=== PATIENT | female | born 1955 | race Caucasian/White ===

== ENCOUNTER 2023-06-14 13:21 | Emergency (ER) | payer MEDICARE, OTHER, SELFPAY ==
[2023-06-14 13:24] VITALS: BP 136/78
[2023-06-14 13:40] LABS: % Basophils 0.7 % (0-2); % Eosinophils 1.3 % (0-6); % Immature Granulocytes 0.3 % (0-0.5); % Lymphocytes 21.6 % (20.5-51.1); % Monocytes 8.3 % (1.7-9.3); % Neutrophils 67.8 % (42.2-75.2); Absolute Basophils 0.1 10^3/uL (0-0.2); Absolute Eosinophils 0.1 10^3/uL (0-0.7); Absolute Monocytes 0.8 10^3/uL (0.1-0.6); Absolute Neutrophils 6.2 10^3/uL (1.4-6.5); Hematocrit 42.7 % (37.0-47.0); Hemoglobin 14.4 g/dL (12.0-16.0); Mean Corp Hgb Conc. 33.7 g/dL (33.0-37.0); Mean Platelet Volume 10.4 fL (7.4-10.4); Nucleated Red Blood Cells % 0 %; Platelet Count 320 10^3/uL (130-400); Red Cell Dist. Width 12.8 % (11.5-14.5); White Blood Cell Count 9.2 10^3/uL (4.8-10.8)
[2023-06-14 13:51] LABS: ALT (SGPT) 16 U/L (0-35); AST (SGOT) 21 U/L (14-36); Albumin 4.1 g/dl (3.5-5.0); Alkaline Phosphatase 64 U/L (38-126); Blood Urea Nitrogen 17 mg/dl (7-17); Calcium 9.9 mg/dl (8.4-10.2); Carbon Dioxide 31 mmol/L (22-30); Chloride 99 mmol/L (98-107); Glucose 115 mg/dl (70-99); Sodium 140 mmol/L (135-145); Total Bilirubin 0.5 mg/dl (0.2-1.3); Total Protein 6.9 g/dl (6.3-8.2); eGFR > 60.00
[2023-06-14 15:08] VITALS: BP 150/80
--- NOTE | 2023-06-14 15:12 | ED.GENMED ---
History of Present Illness
General
Chief Complaint: Blood Pressure Problem
Source: patient
Exam Limitations: none
Time Seen by Provider: 06/14/23 14:52
Nursing documentation reviewed up to this point in time: agreed with
Travel History
Have you had any contact with someone who has COVID-19?: No
Do you have any symptoms of coronavirus? Fever > 100 degrees, chills, cough, shortness of breath, sore throat, loss of taste or smell, muscle aches, or headache?: No
History of Present Illness
History of Present Illness:
67-year-old female with history of HTN, HLD presents for high blood pressure. She recently injured her right ankle and is having Occupational Therapy at home. She states she took her blood pressure yesterday and it was 179/100. Today she states
she sat up in bed this morning and took her blood pressure was 150/99. She took her meds which included losartan 25 mg. She ate breakfast did some ADLs and her blood pressure was still in the 150s/90ss. She called her PCP Dr. Humphreys who told her
to increase her losartan from 25 to 50 mg and she did that at 10 AM. She felt little nauseous had some yogurt and coffee and laid down
Her occupational therapist came at noon and took her blood pressure and it was starting to improve ' but still high.'
She is asymptomatic now
She has had no chest pain, no SOB, no headaches, weakness or dizziness
Past History
Past History
ED Past Medical History: HTN, Hypercholesterolemia, Other (Depression, back pain, neck pain, high blood pressure, pancreatic divisum with pancreatic cyst) and Other (Scoliosis)
ED Past Surgical History: Appendectomy, Cholecystectomy (.) and Gynecological
Social History
Tobacco: Non-smoker
Alcohol: None
Drug: None
Personal: Single
Living: alone
Employment: Employed (Self-employed [employer])
Family History
Family History: Other (Noncontributory)
Review of Systems
Review of Systems
Allergies reviewed?: Yes
All Other Systems: ROS reviewed and negative except as documented in HPI and ROS
Constitutional: Denies fatigue
Respiratory: Denies trouble breathing
Cardiac: Denies chest pain
ABD/GI: Reports nausea (Female little nauseous around 10 AM, ate yogurt and drink coffee, laid down and felt better); Denies abdominal pain, vomiting, diarrhea, constipated or anorexia
: Denies dysuria or difficulty voiding
Musculoskeletal: Denies edema
Skin: Reports no symptoms
Neurological: Reports dizzy ([place] a little dizzy earlier today, none since); Denies headache or weakness
Phy Exam
Physical Exam
Physical Exam:
GENERAL: No acute distress. A&Ox3.
CONSTITUTIONAL: Afebrile.
EYES: PERRL, conjunctivae normal
ENMT: moist mucus membranes, Pharynx nl
RESPIRATORY: Regular respirations, nonlabored, lungs clear.
CARDIOVASCULAR: Regular rate and rhythm, no murmurs, no rubs.
GI: Soft, nontender, normal BS
MUSCULOSKELETAL: Moves with ease. Well perfused. No edema
SKIN: Warm, dry, pink
PSYCH: Normal mood and affect. Well kept, interactive and appropriate
NEUROLOGIC: Awake, alert and oriented. No focal neurological deficits
Course
Orders/Labs/Results
Orders:
Orders
06/14/23 13:29
Electrocardiogram (*1) Urgent
Reason for Study: Hypertension, Benign
EKG- Treatment ONCE
06/14/23 13:30
Complete Blood Count/With Diff Urgent
Comprehensive Metabolic Panel Urgent
Abnormal Lab Results
06/14/23
13:30
Absolute Monos (auto) 0.8 H 10^3/uL
(0.1-0.6)
Carbon Dioxide 31 H mmol/L
(22-30)
Glucose 115 H mg/dl
(70-99)
06/14/23 13:30
06/14/23 13:30
Vital Signs
Initial and Last Documented VS:
Initial Vital Signs
Temp Pulse Resp BP Pulse Ox
98.0 F 65 16 136/78 98
06/14/23 13:24 06/14/23 13:24 06/14/23 13:24 06/14/23 13:24 06/14/23 13:24
Last Documented Vital Signs
Temp Pulse Resp BP Pulse Ox
98.0 F 60 16 130/88 98
06/14/23 13:24 06/14/23 15:52 06/14/23 15:52 06/14/23 15:52 06/14/23 13:24
MDM/Problems Addressed
Differential Diagnosis Includes:
hypertension, hypertensive urgency
MDM/Problems Addressed:
67-year-old female with history of HTN, HLD presents for high blood pressure. She recently injured her right ankle and is having Occupational Therapy at home. She states she took her blood pressure yesterday and it was 179/100. Today she states
she sat up in bed this morning and took her blood pressure was 150/99. She took her meds which included losartan 25 mg. She ate breakfast did some ADLs and her blood pressure was still in the 150s over the 90s. She called her PCP Dr. Humphreys who
told her to increase her losartan from 25 to 50 mg and she did that at 10 AM. She felt little nauseous had some yogurt and coffee and laid down
Her occupational therapist came at noon and took her blood pressure and it was starting to improve ' but still high.' She has had no chest pain, no SOB, no headaches, weakness or dizziness
She is asymptomatic now
EKG NSR
Blood pressure 136/78
06/14/2023 1515 PM
CBC normal
CMP normal
Blood pressure 150/80
Blood pressure seems to be improving with the increased dose of losartan. She is stable for discharge.
Chronic conditions affecting care: HTN
*Critical Care Note
Total Time (30-74mins, 75-104mins- exclusive of procedures): Not Applicable
ED Attending Note
-
Portions of this chart may have been created with voice recognition software.� Occasional wrong word or��sound alike� substitutions may have occurred due to the inherent limitations of voice recognition software.
Discharge Plan
Departure
Patient Disposition: Home (Routine Discharge)
Date of Disposition: 06/14/23
Time of Disposition: 15:17
Patient with high blood pressure during this ER visit?: Yes
Condition: Good
Discharge Problem:
HTN (hypertension)
Instructions: High Blood Pressure (DC)
Prescriptions:
No Action
rosuvastatin 10 MG tablet
10 mg PO HS
metoprolol succinate 25 MG tablet extended release 24 hr
25 mg PO DAILY
duloxetine 60 MG capsule,delayed release(DR/EC)
60 mg PO DAILY
ascorbic acid (vitamin C) [Vitamin C] 1,000 mg Tablet
1 g PO DAILY
trazodone 50 mg Tablet
50 mg PO HSPRN PRN (Reason: anxiety)
cyanocobalamin (vitamin B-12) 1,000 mcg Tablet
1,000 mcg PO DAILY
therapeutic multivitamin Tablet
1 tab PO DAILY
losartan 25 mg Tablet
25 mg PO DAILY
duloxetine 30 mg Capsule,Delayed Release(Dr/Ec)
30 mg PO DAILY
cholecalciferol (vitamin D3) [Vitamin D3] 25 mcg (1,000 unit) Tablet
25 mcg PO DAILY
acetaminophen 500 mg tablet
1,000 mg PO TID Qty: 90 0RF
polyethylene glycol 3350 [HealthyLax] 17 gram Powder In Packet
17 g PO BID Qty: 0 0RF
sennosides-docusate sodium [Stool Softener-Stimulant Laxat] 8.6-50 mg Tablet
2 tab PO BID Qty: 0 0RF
gabapentin 100 mg Capsule
100 mg PO TID Qty: 0 0RF
aspirin 325 mg tablet
325 mg PO DAILY Qty: 26 0RF
oxycodone 5 mg tablet
5 mg PO Q4H PRN (Reason: Pain) Qty: 20 0RF
Referrals:
Cierra Humphreys MD [Family Provider] - As needed
Activity Restrictions/Additional Instructions:
As we discussed, your laboratory work is normal
Take your blood pressure under calm circumstances the same time every day for 2 weeks and record.
If the trend is consistently high, inform Dr. Humphreys.
Continue your increased dose of Losartan.
Interventions
Interventions:
*Risk Screen - Suicide Last Done: 06/14/23 15:52
*General Assessment Last Done: 06/14/23 15:52
*Neglect/Abuse Screening Last Done: 06/14/23 15:52
*ED COVID-19 Vaccine History Last Done: 06/14/23 13:24
*Nursing Disposition Last Done: 06/14/23 15:52
Discharge Date and Time
Discharge Date/Time: 06/14/23 15:53
[2023-06-14 15:26] VITALS: BP 153/81
[2023-06-14 15:52] VITALS: BP 130/88
== END 2023-06-14 15:53 | disposition home or self-care (01) ==
LOC: EMR 13:21
PROVIDERS: EMERGENCY PHYSICIAN Emergency Medicine; FAMILY PHYSICIAN Family Medicine
DX: I10 Essential (primary) hypertension (principal)
CPT/HCPCS: 99284; 80053; 85025; 93005

== ENCOUNTER 2023-07-06 13:26 | Emergency (ER) | payer MEDICARE, OTHER, SELFPAY ==
[2023-07-06 13:32] VITALS: BP 176/90
[2023-07-06 13:38] VITALS: BP 176/90
[2023-07-06 14:00] VITALS: BP 161/91
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
[2023-07-06 15:26] LABS: % Basophils 0.9 % (0-2); % Eosinophils 1.8 % (0-6); % Immature Granulocytes 0.4 % (0-0.5); % Lymphocytes 21.4 % (20.5-51.1); % Monocytes 11.7 % (1.7-9.3); % Neutrophils 63.8 % (42.2-75.2); Absolute Basophils 0.1 10^3/uL (0-0.2); Absolute Eosinophils 0.2 10^3/uL (0-0.7); Absolute Lymphocytes 1.8 10^3/uL (1.2-3.4); Absolute Neutrophils 5.3 10^3/uL (1.4-6.5); Hematocrit 46.2 % (37.0-47.0); Hemoglobin 15.3 g/dL (12.0-16.0); Mean Corp Hgb Conc. 33.1 g/dL (33.0-37.0); Mean Corpuscular Hgb 29.1 pg (27.0-31.0); Mean Corpuscular Volume 87.8 fL (81.0-99.0); Mean Platelet Volume 10.4 fL (7.4-10.4); Nucleated Red Blood Cells % 0 %; Platelet Count 325 10^3/uL (130-400); Red Blood Cell Count 5.26 10^6/uL (4.20-5.40); White Blood Cell Count 8.2 10^3/uL (4.8-10.8)
[2023-07-06 15:29] LABS: Urine Albumin Negative (Neg - Trace); Urine Bilirubin Negative (Negative); Urine Character Clear (Clear); Urine Color Straw; Urine Glucose Negative (Negative); Urine Ketone Negative (Negative); Urine Leukocyte Negative (Negative); Urine Nitrite Negative (Negative); Urine Occult Blood Negative (Negative); Urine Specific Gravity 1.005 (<1.030); Urine Urobilinogen Negative (Neg - 1+)
[2023-07-06 15:40] LABS: ALT (SGPT) 21 U/L (0-35); AST (SGOT) 26 U/L (14-36); Albumin 4.8 g/dl (3.5-5.0); Alkaline Phosphatase 74 U/L (38-126); Blood Urea Nitrogen 11 mg/dl (7-17); Calcium 9.8 mg/dl (8.4-10.2); Carbon Dioxide 29 mmol/L (22-30); Chloride 99 mmol/L (98-107); Glucose 92 mg/dl (70-99); Potassium 3.9 mmol/L (3.5-5.1); Sodium 140 mmol/L (135-145); Total Bilirubin 0.4 mg/dl (0.2-1.3); Total Protein 7.8 g/dl (6.3-8.2); eGFR > 60.00
[2023-07-06 15:43] LABS: COVID-19 Antigen Negative (Negative)
[2023-07-06 15:46] LABS: Troponin I < 0.012 ng/ml
[2023-07-06 16:00] VITALS: BP 171/99
[2023-07-06] MEDS: NORVASC 5 MG PO (16:20)
[2023-07-06 17:00] VITALS: BP 151/85
== END 2023-07-06 17:10 | disposition home or self-care (01) ==
LOC: EMR 13:26
PROVIDERS: Physician Assistant; EMERGENCY PHYSICIAN Emergency Medicine; FAMILY PHYSICIAN Family Medicine
DX: I10 Essential (primary) hypertension (principal); E78.00 Pure hypercholesterolemia, unspecified; F32.A Depression, unspecified; M41.9 Scoliosis, unspecified; Z79.899 Other long term (current) drug therapy; Z90.49 Acquired absence of other specified parts of digestive tract
CPT/HCPCS: 99284; 70450; 80053; 81003; 84484; 85025; 87502; 87811; 93005

== ENCOUNTER → 2023-07-12 11:12 | Outpatient (REF) | payer MEDICARE, OTHER, SELFPAY | LOC: PAVMRI 11:12 | PROVIDERS: ATTENDING PHYSICIAN Family Medicine; REFERRING PHYSICIAN Chiropractor | DX: G89.29 Other chronic pain (principal); M54.50 Low back pain, unspecified; M51.36 Other intervertebral disc degeneration, lumbar region; M25.551 Pain in right hip | CPT/HCPCS: 72148; 73721 ==

== ENCOUNTER 2023-09-25 19:47 | Emergency (ER) | payer MEDICARE, OTHER, SELFPAY ==
[2023-09-25 19:49] VITALS: BP 126/64; BMI 25.5
--- NOTE | 2023-09-25 22:21 | ED.GENMED ---
History of Present Illness
General
Chief Complaint: Eye Problems
Source: patient
Time Seen by Provider: 09/25/23 22:10
Travel History
Have you had any contact with someone who has COVID-19?: No
Do you have any symptoms of coronavirus? Fever > 100 degrees, chills, cough, shortness of breath, sore throat, loss of taste or smell, muscle aches, or headache?: No
History of Present Illness
History of Present Illness:
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 Patient states she has a gritty sensation in the
left eye and also notes a subconjunctival hemorrhage to the left eye. Patient does not wear glasses nor contact lenses. No visual changes. No other injuries or concerns.
Past History
Past History
ED Past Medical History: HTN, Hypercholesterolemia, Other (Depression, back pain, neck pain, high blood pressure, pancreatic divisum with pancreatic cyst) and Other (Scoliosis)
ED Past Surgical History: Appendectomy, Cholecystectomy (.) and Gynecological
Social History
Tobacco: Non-smoker
Alcohol: None
Drug: None
Personal: Single
Living: alone
Employment: Employed (Self-employed [employer])
Family History
Family History: Other (Noncontributory)
Review of Systems
Review of Systems
All Other Systems: ROS reviewed and negative except as documented in HPI and ROS
Phy Exam
Physical Exam
Physical Exam:
GENERAL: Alert , in no apparent distress
EYE: Subconjunctival hemorrhage to the left lateral sclera, no foreign body visualized, pupil 3 mm, round and reactive, gross vision intact
Fluorescein stain: No uptake
Head: Normocephalic atraumatic
NECK: Supple,
ENT: mmm.
LUNGS: no acute respiratory distress
NEUROLOGICAL: Alert and oriented
SKIN: Warm and dry, skin intact.
MUSCULOSKELETAL: well perfused.
PSYCH: Normal and appropriate interaction.
Scores
Heart Failure Risk
Heart Failure Risk Score: Not Applicable
Heart Score for Chest Pain Patients
STEMI patient?: Not applicable
Withdrawal Assessment of Alcohol
Withdrawal Assessment Completed?: Not applicable
Course
Orders/Labs/Results
Orders:
Orders
09/26/23 08:00
Ofloxacin [Ocuflox] 2 drop OPHTH QID
Vital Signs
Initial and Last Documented VS:
Initial Vital Signs
Temp Pulse Resp BP Pulse Ox
98.2 F 71 16 126/64 98
09/25/23 19:49 09/25/23 19:49 09/25/23 19:49 09/25/23 19:49 09/25/23 19:49
Last Documented Vital Signs
Temp Pulse Resp BP Pulse Ox
98.2 F 71 16 126/64 98
09/25/23 19:49 09/25/23 19:49 09/25/23 19:49 09/25/23 19:49 09/25/23 19:49
MDM/Problems Addressed
Differential Diagnosis Includes:
Subconjunctival hemorrhage, corneal abrasion, foreign body retained
MDM/Problems Addressed:
67-year-old female presenting emergency department for evaluation of left eye injury after getting poked in the left eye by a pine needle while pruning trees. Subconjunctival hemorrhage noted. Suspect there to be a corneal abrasion. Will treat
with topical antibiotics./Tylenol as needed for pain. Patient to follow-up outpatient with a primary care provider or ophthalmology as needed. Otherwise stable for discharge home.
*Pulse Oximetry
Patient hypoxic: no
*Critical Care Note
Total Time (30-74mins, 75-104mins- exclusive of procedures): Not Applicable
ED Attending Note
-
Portions of this chart may have been created with voice recognition software.� Occasional wrong word or��sound alike� substitutions may have occurred due to the inherent limitations of voice recognition software.
Discharge Plan
Departure
Patient Disposition: Home (Routine Discharge)
Date of Disposition: 09/25/23
Time of Disposition: 22:23
Patient with high blood pressure during this ER visit?: No
Discharge Problem:
Traumatic subconjunctival hemorrhage of left eye, Corneal abrasion, left
Instructions: Corneal Abrasion (DC), Subconjunctival Hemorrhage
Prescriptions:
New
ofloxacin 0.3 % drops
2 drp ophthalmic (eye) QID 5 Days Qty: 5 0RF
No Action
rosuvastatin 10 MG tablet
10 mg PO HS
metoprolol succinate 25 MG tablet extended release 24 hr
25 mg PO DAILY
duloxetine 60 MG capsule,delayed release(DR/EC)
60 mg PO DAILY
ascorbic acid (vitamin C) [Vitamin C] 1,000 mg Tablet
1 g PO DAILY
trazodone 50 mg Tablet
50 mg PO HSPRN PRN (Reason: anxiety)
cyanocobalamin (vitamin B-12) 1,000 mcg Tablet
1,000 mcg PO DAILY
therapeutic multivitamin Tablet
1 tab PO DAILY
losartan 25 mg Tablet
25 mg PO DAILY
duloxetine 30 mg Capsule,Delayed Release(Dr/Ec)
30 mg PO DAILY
cholecalciferol (vitamin D3) [Vitamin D3] 25 mcg (1,000 unit) Tablet
25 mcg PO DAILY
acetaminophen 500 mg tablet
1,000 mg PO TID Qty: 90 0RF
polyethylene glycol 3350 [HealthyLax] 17 gram Powder In Packet
17 g PO BID Qty: 0 0RF
sennosides-docusate sodium [Stool Softener-Stimulant Laxat] 8.6-50 mg Tablet
2 tab PO BID Qty: 0 0RF
gabapentin 100 mg Capsule
100 mg PO TID Qty: 0 0RF
aspirin 325 mg tablet
325 mg PO DAILY Qty: 26 0RF
oxycodone 5 mg tablet
5 mg PO Q4H PRN (Reason: Pain) Qty: 20 0RF
amlodipine 5 mg tablet
5 mg PO DAILY Qty: 20 0RF
Interventions
Interventions:
*Risk Screen - Suicide Last Done: 09/25/23 19:49
*Neglect/Abuse Screening Last Done: 09/25/23 19:49
ED- Fall Risk Assessment Last Done: 09/25/23 19:49
Discharge Date and Time
Print Language: [place]
[2023-09-25] MEDS: OCUFLOX 2 DROP OPHTH (23:23)
[2023-09-25 23:29] VITALS: BP 138/69
== END 2023-09-25 23:30 | disposition home or self-care (01) ==
LOC: EMR 19:47
PROVIDERS: EMERGENCY PHYSICIAN Student in an Organized Health Care Education/Training Program; FAMILY PHYSICIAN Family Medicine
DX: H11.32 Conjunctival hemorrhage, left eye (principal); S05.02XA Injury of conjunctiva and corneal abrasion without foreign body, left eye, initial encounter; W22.8XXA Striking against or struck by other objects, initial encounter; Y93.H2 Activity, gardening and landscaping; Z79.82 Long term (current) use of aspirin
CPT/HCPCS: 99283

== ENCOUNTER → 2024-01-09 15:11 | Outpatient (REF) | payer MEDICARE, OTHER, SELFPAY | LOC: WDC 15:11 | PROVIDERS: ATTENDING PHYSICIAN Family Medicine | DX: Z12.31 Encounter for screening mammogram for malignant neoplasm of breast (principal) | CPT/HCPCS: 77063; 77067 ==

== ENCOUNTER → 2024-03-24 13:51 | Outpatient (REF) | payer MEDICARE, OTHER, SELFPAY | LOC: PAVMRI 13:51 | PROVIDERS: ATTENDING PHYSICIAN Internal Medicine Gastroenterology; FAMILY PHYSICIAN Family Medicine | DX: K86.2 Cyst of pancreas (principal) | CPT/HCPCS: 74183; A9575 ==

== ENCOUNTER 2024-08-12 06:18 | Day surgery (SDC) | payer MEDICARE, OTHER, SELFPAY | END 2024-08-12 13:23 | disposition home or self-care (01) | LOC: GI 06:18 | PROVIDERS: ATTENDING PHYSICIAN Surgery; FAMILY PHYSICIAN Family Medicine | DX: Z12.11 Encounter for screening for malignant neoplasm of colon (principal); K57.30 Diverticulosis of large intestine without perforation or abscess without bleeding; K64.9 Unspecified hemorrhoids; Z86.0100 Personal history of colon polyps, unspecified | CPT/HCPCS: G0121 ==

== ENCOUNTER → 2024-08-17 14:12 | Outpatient (REF) | payer MEDICARE, OTHER, SELFPAY | LOC: RAD 14:12 | PROVIDERS: ATTENDING PHYSICIAN Family Medicine | DX: M81.0 Age-related osteoporosis without current pathological fracture (principal) | CPT/HCPCS: 77080 ==

== ENCOUNTER → 2025-03-30 12:52 | Outpatient (REF) | payer MEDICARE, OTHER, SELFPAY | LOC: RAD 12:52 | PROVIDERS: ATTENDING PHYSICIAN Podiatrist; FAMILY PHYSICIAN Family Medicine | DX: M19.071 Primary osteoarthritis, right ankle and foot (principal) | CPT/HCPCS: 73610 ==